=== PATIENT | male | born 1975 | race Caucasian/White ===

== ENCOUNTER 2018-11-05 11:55 | Emergency (ER) | payer MEDICAID ==
[~2018-11-05] VITALS: Ht 182.9 cm; Wt 82.3 kg
[2018-11-05 11:58] VITALS: BP 198/135
--- NOTE | 2018-11-05 12:17 | NUR ---
PT AAOX4. PT WAIT AT E . WAITING FOR AVAILABLE BED. REPORTED TO BOB MENSAH.
--- NOTE | 2018-11-05 12:20 | NUR ---
PT BIB SELD C/O EYE PAIN, BLURRY VISON, RIGHT SIDED NUMBNESS X 10 DAYS. PT DENIES HEADACHE, CP, OR SOB. FACIAL SYMMETRY INTACT, HAND COMMUNITY DEVELOPMENT OFFICER EQUAL/STRONG, SPEECH CLEAR, GAIT STEADY, DAVID CARTER4. PT HYPERTENSIVE WITH BP 198/135 AT THIS TIME. DENIES MED HX. Addendum: 11/05/18 at 1301 by AIDA MADELAINE NOBLE MADE AWARE
--- NOTE | 2018-11-05 12:36 | NUR ---
PT AMBULATED TO ER BED 08
--- NOTE | 2018-11-05 12:58 | NUR ---
PT AT CT AT THIS TIME
--- NOTE | 2018-11-05 12:59 | NUR ---
OUT OF ROOM IN RADIOLOGY FOR CT SCAN SANDING LINE OPERATOR TO ATTEMPT ABG A LATER TIME
--- NOTE | 2018-11-05 13:06 | NUR ---
RT AND LAB AT BEDSIDE AT THIS TIME.
[2018-11-05 13:23] LABS: BASOPHILS # (AUTO) 0.1 K/uL (0.00-0.22); BASOPHILS % (AUTO) 0.6 % (0.0-2.0); EOSINOPHILS # (AUTO) 0.1 K/uL (0-0.4); EOSINOPHILS % (AUTO) 0.5 % (0.0-4.0); HEMATOCRIT 48.7 % (36-52); HEMOGLOBIN 16.5 g/dL (12.0-18.0); LYMPHOCYTES # (AUTO) 1.5 K/uL (2.0-11.5); LYMPHOCYTES % (AUTO) 14.6 % (20.5-51.1); MEAN CORPUSCULAR HEMOGLOBIN 30 pg (27-31); MEAN CORPUSCULAR HGB CONC 34 g/dL (33-37); MEAN CORPUSCULAR VOLUME 89.3 fL (80-94); MONOCYTES # (AUTO) 0.5 K/uL (0.8-1.0); MONOCYTES % (AUTO) 4.5 % (1.7-9.3); NEUTROPHILS # (AUTO) 8.3 K/uL (1.8-7.7); NEUTROPHILS % (AUTO) 79.8 % (42.2-75.2); PLATELET COUNT (AUTO) 283 K/uL (140-450); RED BLOOD CELL COUNT(AUTO) 5.45 MIL/uL (4.20-6.10); RED CELL DISTRIBUTION WIDTH 13.3 % (11.6-13.7); WHITE BLOOD COUNT (AUTO) 10.4 K/uL (4.8-10.8)
--- NOTE | 2018-11-05 13:29 | NUR ---
[employer]. PANEL BUILDER, PAUL # [id number]
--- NOTE | 2018-11-05 13:35 | NUR ---
ER AT BEDSIDE
[2018-11-05 13:36] LABS: PROTHROMBIN TIME 9.5 secs (10.8-13.4)
[2018-11-05 13:38] LABS: ANION GAP 13.5 (8-16); CARBON DIOXIDE 26.7 mmol/L (21-32); POTASSIUM 4.2 mmol/L (3.5-5.1); TOTAL BILIRUBIN 0.7 mg/dL (0.0-1.0)
[2018-11-05 13:45] LABS: THYROID STIMULATING HORMONE 0.98 uIU/mL (0.34-3.74)
[2018-11-05] MEDS ORDERED: FLUORESCEIN OPTH STRIP 0.6 MG OP ONE (13:55)
[2018-11-05] MEDS ORDERED: NACL 0.9% 1,000 ML IV ONE (14:40)
[2018-11-05 15:05] LABS: APPEARANCE,URINE CLEAR (CLEAR); BILIRUBIN,URINE NEGATIVE (NEGATIVE); COLOR,URINE YELLOW (YELLOW); LEUKOCYTE ESTERASE ,URINE NEGATIVE (NEGATIVE); NITRITE, URINE NEGATIVE (NEGATIVE); PH,URINE 6.5 (5.0-9.0); UGLUCOSE NEGATIVE (NEGATIVE)
[2018-11-05 15:12] LABS: BLOOD, URINE NEGATIVE (NEGATIVE)
[2018-11-05] MEDS ORDERED: LABETALOL 100 MG/20 ML VIAL IVP ONE ×2 (16:05→18:15)
--- NOTE | 2018-11-05 17:20 | NUR ---
PT RESTING IN BED, REPORTS EYE PAIN AT 3/10. PT HYPERTENSIVE WITH BP 208/155. PT DENIES CP OR SOB AT THIS TIME. ER MD NOTIFIED.
--- NOTE | 2018-11-05 18:44 | NUR ---
CALLED [facility] TO GIVE REPORT AT THIS TIME. WAS PUT ON HOLD
--- NOTE | 2018-11-05 18:50 | NUR ---
CALLED [facility], GAVE REPORT TO CHARGE NURSE JOHN
[2018-11-05 18:57] VITALS: BP 145/104
== END 2018-11-05 19:03 | disposition short-term general hospital (02) ==
LOC: MED 11:55
DX: H57.13 Ocular pain, bilateral (principal); R20.0 Anesthesia of skin; R79.1 Abnormal coagulation profile; R94.31 Abnormal electrocardiogram [ECG] [EKG]
CPT/HCPCS: 36415; 36600; 70450; 71045; 80053; 81003; 82550; 82553; 82803; 83605; 83874; 83880; 84443; 84484; 85025; 85610; 85730; 87040; 87086; 93005; 96374; 96375; 99284; J3490; J7030; Q0092; 99285